=== PATIENT | male | born 2000 | race Caucasian/White ===

== ENCOUNTER 2022-10-14 19:05 | Emergency (ER) | payer BC, SELFPAY ==
[2022-10-14 19:07] VITALS: BP 141/79; PULSE 116; RESP 18; TEMP 37.4; O2SAT 97; BMI 22.6
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
[2022-10-14] MEDS: Ibuprofen 600 MG Tablet PO (20:26)
== END 2022-10-14 21:25 | disposition home or self-care (01) ==
PROVIDERS: Emergency Provider Emergency Medicine; Visit Provider Emergency Medicine
DX: S29.011A Strain of muscle and tendon of front wall of thorax, initial encounter (principal); S40.012A Contusion of left shoulder, initial encounter; S80.11XA Contusion of right lower leg, initial encounter; S80.12XA Contusion of left lower leg, initial encounter; V43.52XA Car driver injured in collision with other type car in traffic accident, initial encounter
CPT/HCPCS: 71045; 73030; 99283